=== PATIENT | female | born 1965 | race Caucasian/White ===

== ENCOUNTER → 2018-12-29 | Outpatient (CLI) | payer MEDICAID ==
[2018-12-29 20:53] LABS: Microalbumin Creatinine Ratio <30 mg/g Creat (0-30)
[2018-12-30 00:53] LABS: Hemoglobin A1C 5.9 % (4.0-6.0)
== END | disposition home or self-care (01) ==
LOC: LABWHC1 12:13
PROVIDERS: ATTEND Internal Medicine
DX: E11.9 Type 2 diabetes mellitus without complications (principal)
CPT/HCPCS: 36415; 82043; 82570; 83036

== ENCOUNTER → 2019-07-28 | Outpatient (CLI) | payer MEDICAID ==
[2019-07-28 20:04] LABS: Luteinizing Hormone 25.7 mIU/mL
[2019-07-28 20:05] LABS: Follicle Stimulating Hormone 44.8 mIU/mL
== END | disposition home or self-care (01) ==
LOC: LABWHC1 12:47
PROVIDERS: ATTEND Internal Medicine
DX: Z78.0 Asymptomatic menopausal state (principal)
CPT/HCPCS: 36415; 82672; 83001; 83002

== ENCOUNTER → 2019-11-10 | Outpatient (CLI) | payer MEDICAID ==
[2019-11-10 10:25] LABS: Basophils % (A) 1 %; Eosinophils # (A) 0.2 k/uL (0-0.7); Eosinophils % (A) 3 %; HCT 40.3 % (34.0-46.0); HGB 12.8 gm/dL (11.4-16.0); Lymphocytes # (A) 1.8 k/uL (1.0-4.8); Lymphocytes % (A) 28 %; MCH 29.4 pg (25.0-35.0); MCHC 31.7 g/dL (31.0-37.0); MCV 92.8 fL (80.0-100.0); Mean Platelet Volume 7.8; Monocytes # (A) 0.3 k/uL (0-1.0); Monocytes % (A) 4 %; Neutrophils % (A) 63 %; Platelet Count 278 k/uL (150-450); RBC 4.34 m/uL (3.80-5.40); RDW 12.7 % (11.5-15.5); WBC 6.4 k/uL (3.8-10.6)
[2019-11-10 11:21] LABS: Appearance,Urine Cloudy (Clear); Bacteria,Urine Occasional /hpf; Bilirubin,Urine Negative (Negative); Blood,Urine Negative (Negative); Color,Urine Yellow; Glucose,Urine (UA) Negative (Negative); Ketones,Urine Negative (Negative); Leukocyte Esterase,Urine Large (Negative); Mucus,Urine Rare /hpf; Nitrite,Urine Negative (Negative); Protein,Urine Negative (Negative); RBC,Urine <1 /hpf (0-5); Specific Gravity,Urine 1.015 (1.001-1.035); Squamous Epithelial Cell,Urine 5 /hpf (0-4); Urobilinogen,Urine <2.0 mg/dL (<2.0); WBC,Urine 31 /hpf (0-5)
[2019-11-10 16:15] LABS: Urine Creatinine 69.1 mg/dL
[2019-11-10 16:47] LABS: African American GFR (CKD) 82.8 (60.0-200.0); Albumin 4.2 g/dL (3.80-4.90); Albumin/Globulin Ratio 1.91 (1.60-3.17); Anion Gap 8.5 mmol/L (4.00-12.00); BUN/Creat Ratio 17.78 Ratio (12.00-20.00); Calcium 9.3 mg/dL (8.7-10.3); Carbon Dioxide 29.5 mmol/L (21.6-31.8); Chol/HDL Ratio 1.95; Globulin 2.2 g/dL (1.6-3.3); Non-African American GFR(CKD) 71.5 (60.0-200.0); Potassium 4.7 mmol/L (3.5-5.5); Total Bilirubin 0.3 mg/dL (0.2-1.2); Total Protein 6.4 g/dL (6.2-8.2)
[2019-11-10 17:45] LABS: Hemoglobin A1C 6.2 % (4.0-6.0)
== END | disposition home or self-care (01) ==
LOC: LABWHC1 09:31
PROVIDERS: ATTEND Internal Medicine
DX: Z00.00 Encounter for general adult medical examination without abnormal findings (principal); E11.9 Type 2 diabetes mellitus without complications; R11.0 Nausea
CPT/HCPCS: 36415; 80053; 80061; 81001; 82043; 82306; 82570; 83036; 84443; 85025

== ENCOUNTER → 2020-07-11 | Outpatient (CLI) | payer MEDICAID ==
[2020-07-11 19:56] LABS: Basophils # (A) 0.06 X 10*3/uL (0.00-0.10); Basophils % (A) 0.9 %; Eosinophils # (A) 0.29 X 10*3/uL (0.04-0.35); Eosinophils % (A) 4.3 %; HCT 38.1 % (37.2-46.3); HGB 12.1 g/dL (12.0-15.0); Lymphocytes # (A) 2.27 X 10*3/uL (0.90-5.00); Lymphocytes % (A) 33.5 %; MCH 30.5 pg (27.0-32.0); MCHC 31.8 g/dL (32.0-37.0); Mean Platelet Volume 11.8 fL (9.5-12.2); Monocytes # (A) 0.44 X 10*3/uL (0.20-1.00); Monocytes % (A) 6.5 %; Neutrophils # (A) 3.69 X 10*3/uL (1.80-7.70); Neutrophils % (A) 54.5 %; Platelet Count 273 X 10*3/uL (140-440); RBC 3.97 X 10*6/uL (4.10-5.20); RDW 12.4 % (11.5-14.5); WBC 6.77 X 10*3/uL (4.50-10.00)
[2020-07-11 22:17] LABS: Hemoglobin A1C 6.1 % (4.0-6.0)
[2020-07-12 16:15] LABS: African American GFR (CKD) 95.5 (60.0-200.0); Albumin 4.2 g/dL (3.80-4.90); Albumin/Globulin Ratio 1.83 (1.60-3.17); Anion Gap 13.9 mmol/L (4.00-12.00); BUN/Creat Ratio 12.5 Ratio (12.00-20.00); Calcium 9.6 mg/dL (8.7-10.3); Carbon Dioxide 24.1 mmol/L (21.6-31.8); Chol/HDL Ratio 2.16; Globulin 2.3 g/dL (1.6-3.3); LDL Cholesterol,Calculated 71.2 mg/dL (0.0-131.0); Non-African American GFR(CKD) 82.4 (60.0-200.0); Potassium 4.7 mmol/L (3.5-5.5); Total Bilirubin 0.3 mg/dL (0.3-1.2); Total Protein 6.5 g/dL (6.2-8.2); VLDL Calculation 13.8 mg/dL (5.00-40.00)
[2020-07-12 20:02] LABS: Microalbumin Creatinine Ratio <30 mg/g Creat (0-30); Urine Creatinine 31.8 mg/dL
== END | disposition home or self-care (01) ==
LOC: LABWHC1 12:07
PROVIDERS: ATTEND Internal Medicine
DX: Z13.29 Encounter for screening for other suspected endocrine disorder (principal); E78.5 Hyperlipidemia, unspecified; E11.9 Type 2 diabetes mellitus without complications; E55.9 Vitamin D deficiency, unspecified; I10 Essential (primary) hypertension
CPT/HCPCS: 36415; 80053; 80061; 82043; 82306; 82570; 83036; 84443; 85025

== ENCOUNTER → 2020-12-06 | Outpatient (CLI) | payer MEDICAID ==
--- NOTE | 2020-12-06 15:28 | US ---
EXAMINATION TYPE: US pelvic complete DATE OF EXAM: 12/06/2020 COMPARISON: NONE CLINICAL HISTORY: N95.0 Postmenopausal bleeding. Patient takes Esterol. TECHNIQUE: Transabdominal (TA). Date of LMP: 3 years prior EXAM MEASUREMENTS: Uterus: 8.2 x 3.5 x 3.7 cm Endometrial Stripe: 0.6 cm Right Ovary: 2.6 x 1.1 x 0.8 cm Left Ovary: 1.5 x 0.8 x 0.9 cm 1. Uterus: Anteverted wnl 2. Endometrium: wnl 3. Right Ovary: wnl 4. Left Ovary: wnl 5. Bilateral Adnexa: wnl 6. Posterior cul-de-sac: wnl IMPRESSION: No discrete abnormality seen.
== END | disposition home or self-care (01) ==
LOC: RADUSWWP 14:50
PROVIDERS: ATTEND Obstetrics & Gynecology
DX: N95.0 Postmenopausal bleeding (principal)
CPT/HCPCS: 76856

== ENCOUNTER → 2021-05-11 | Outpatient (CLI) | payer MEDICAID ==
[2021-05-11 16:35] LABS: Basophils # (A) 0.04 X 10*3/uL (0.00-0.10); Basophils % (A) 0.7 %; Eosinophils # (A) 0.19 X 10*3/uL (0.04-0.35); Eosinophils % (A) 3.4 %; HCT 38.1 % (37.2-46.3); HGB 12.1 g/dL (12.0-15.0); Immature Grans, Automated 0.2 %; Lymphocytes # (A) 1.46 X 10*3/uL (0.90-5.00); MCHC 31.8 g/dL (32.0-37.0); MCV 94.3 fL (80.0-97.0); Mean Platelet Volume 11.1 fL (9.5-12.2); Monocytes # (A) 0.42 X 10*3/uL (0.20-1.00); Monocytes % (A) 7.5 %; NRBC Per 100 WBC 0 /100 WBCS (0.0-0.0); Neutrophils % (A) 62.2 %; Platelet Count 264 X 10*3/uL (140-440); RBC 4.04 X 10*6/uL (4.10-5.20); RDW 12.8 % (11.5-14.5); WBC 5.62 X 10*3/uL (4.50-10.00)
[2021-05-11 17:19] LABS: ALT 21 U/L (8-44); AST 12 U/L (13-35); African American GFR (CKD) 94.9 (60.0-200.0); Albumin 4.1 g/dL (3.8-4.9); Albumin/Globulin Ratio 1.58 (1.60-3.17); Alkaline Phosphatase 78 U/L (41-126); Blood Urea Nitrogen 10.8 mg/dL (9.0-27.0); Carbon Dioxide 23.3 mmol/L (20.0-27.5); Chloride 102 mmol/L (96-109); Globulin 2.6 g/dL (1.6-3.3); Glucose 103 mg/dL (70-110); Non-African American GFR(CKD) 81.8 (60.0-200.0); Potassium 4.7 mmol/L (3.5-5.5); Sodium 136 mmol/L (135-145); Total Bilirubin <0.15 mg/dL (0.30-1.20); Total Protein 6.7 g/dL (6.2-8.2)
[2021-05-11 17:31] LABS: Chol/HDL Ratio 1.86 Ratio
[2021-05-11 21:59] LABS: Urine Creatinine 35.8 mg/dL (28.0-217.0)
== END | disposition home or self-care (01) ==
LOC: LABWHC1 10:46
PROVIDERS: ATTEND Internal Medicine
DX: Z00.00 Encounter for general adult medical examination without abnormal findings (principal); E11.9 Type 2 diabetes mellitus without complications; E55.9 Vitamin D deficiency, unspecified
CPT/HCPCS: 36415; 80053; 80061; 82043; 82306; 82570; 83721; 84443; 85025

== ENCOUNTER → 2021-12-23 | Outpatient (CLI) | payer MEDICAID ==
[2021-12-23 18:05] LABS: Basophils # (A) 0.04 X 10*3/uL (0.00-0.10); Basophils % (A) 0.6 %; Eosinophils # (A) 0.16 X 10*3/uL (0.04-0.35); Eosinophils % (A) 2.3 %; HCT 39.2 % (37.2-46.3); HGB 12.4 g/dL (12.0-15.0); Immature Grans, Automated 0.3 %; Lymphocytes # (A) 1.94 X 10*3/uL (0.90-5.00); Lymphocytes % (A) 27.8 %; MCH 29.9 pg (27.0-32.0); MCHC 31.6 g/dL (32.0-37.0); MCV 94.5 fL (80.0-97.0); Mean Platelet Volume 11.8 fL (9.5-12.2); Monocytes # (A) 0.45 X 10*3/uL (0.20-1.00); Monocytes % (A) 6.4 %; NRBC Per 100 WBC 0 /100 WBCS (0.0-0.0); Neutrophils # (A) 4.38 X 10*3/uL (1.80-7.70); Neutrophils % (A) 62.6 %; Platelet Count 242 X 10*3/uL (140-440); RBC 4.15 X 10*6/uL (4.10-5.20); RDW 13.2 % (11.5-14.5); WBC 6.99 X 10*3/uL (4.50-10.00)
[2021-12-23 18:14] LABS: African American GFR (CKD) 83.4 (60.0-200.0); BUN/Creat Ratio 11.3 Ratio (12.00-20.00); Calcium 9.4 mg/dL (8.7-10.3); Carbon Dioxide 29.2 mmol/L (20.0-27.5); Non-African American GFR(CKD) 71.9 (60.0-200.0); Potassium 4.5 mmol/L (3.5-5.5)
== END | disposition home or self-care (01) ==
LOC: LABPAT 12:36
PROVIDERS: ATTEND Orthopaedic Surgery
DX: Z01.812 Encounter for preprocedural laboratory examination (principal); M23.92 Unspecified internal derangement of left knee
CPT/HCPCS: 36415; 80048; 85025; 93005

== ENCOUNTER → 2021-12-27 | Day surgery (SDC) | payer MEDICAID ==
[2021-12-25 12:04] VITALS: BMI 45.3
--- NOTE | 2021-12-26 10:24 | P.HPOR ---
History of Present Illness H&P Date: 12/26/21 Chief Complaint: Left knee pain The patient is a 56-year-old female who presents with left knee pain for the past 6 months. She recently had a twisting injury as well. She notes buckling, locking, and swelling. She is having difficult time with weightbearing activities, particularly stairs. She tried medications in addition to injections without much relief. She's also been wearing a brace. Review of Systems As per HPI Past Medical History Past Medical History: Asthma, Diabetes Mellitus, Fibromyalgia, GERD/Reflux, Hyperlipidemia, Hypertension, Osteoarthritis (OA) Additional Past Medical History / Comment(s): COVD 09/01/21, migraines, seasonal asthma-states currently having sinus symptoms due to allergies, hx IBS, diet control diabetic, urinary leakage History of Any Multi-Drug Resistant Organisms: None Reported Past Surgical History: Section Past Anesthesia/Blood Transfusion Reactions: Motion Sickness Smoking Status: Never smoker - Past Family History Father Family Medical History: Cancer Additional Family Medical History / Comment(s): skin Mother Family Medical History: Cancer Additional Family Medical History / Comment(s): pancreatic Medications and Allergies Home Medications Medication Instructions Recorded Confirmed Type ALPRAZolam [Xanax] 0.25 mg PO BID PRN 12/25/21 12/25/21 History Acetaminophen-Codeine 300-30mg 1 tab PO Q6HR PRN 12/25/21 12/25/21 History [Tylenol w/codeine #3] Amitriptyline HCl [Elavil] 25 mg PO HS 12/25/21 12/25/21 History Ashwagandha Root Extract 600 mg PO HS 12/25/21 12/25/21 History Aspirin/Acetaminophen/Caffeine 1 each PO DIRECTED PRN 12/25/21 12/25/21 History [Excedrin Extra Strength Caplet] Atorvastatin Calcium 10 mg PO HS 12/25/21 12/25/21 History Enalapril Maleate 5 mg PO HS 12/25/21 12/25/21 History Fexofenadine/Pseudoephedrine 1 tab PO HS 12/25/21 12/25/21 History [Crystal-D 24 Hour Tablet] Fluticasone Nasal [place] [Flonase 1 spray EA NOSTRIL DAILY 12/25/21 12/25/21 History Nasal [place]] Ibuprofen [Motrin] 600 mg PO Q8HR PRN 12/25/21 12/25/21 History Magnesium Oxide [Magnesium] 500 mg PO DAILY 12/25/21 12/25/21 History Metoprolol Succinate (ER) [Toprol 25 mg PO HS 12/25/21 12/25/21 History Xl] Montelukast Sodium [Singulair] 10 mg PO HS 12/25/21 12/25/21 History Sudafed(Dose Unknown) 1 applicate PO DIRECTED PRN 12/25/21 12/25/21 History Venlafaxine HCl ER [Effexor Xr] 75 mg PO HS 12/25/21 12/25/21 History methocarbamoL [Methocarbamol] 500 mg PO Q8HR PRN 12/25/21 12/25/21 History Allergies Allergy/AdvReac Type Severity Reaction Status Date / Time cephalexin [From Keflex] AdvReac Nausea & Verified 12/25/21 11:46 Vomiting & Diarrhea fexofenadine [From Crystal-D] AdvReac headaches Verified 12/25/21 11:46 pseudoephedrine AdvReac headaches Verified 12/25/21 11:46 [From Crystal-D] powder in latex gloves Allergy red skin Uncoded 12/25/21 12:17 Physical Examination - Knee right Appearance: effusion Effusion grade: grade 1 Varus alignment in stance: 5 degrees Tenderness with palpation: medial Pain: with flexion Gait: limping ROM: extension: -5 degrees ROM: flexion: 110 degrees Crepitus with motion: Yes Strength: extension: 5/5 Strength: flexion: 5/5 Meniscal tests: medial meniscal tests: positive Results The patient is a well-developed well-nourished female of endomorphic habitus. HEENT exam is nonfocal, neck supple. She has painless passive motion of her left hip. Straight leg raise is negative. Her distal neurovascular appears intact in left lower extremity. - Diagnostic results Knee MRI: image reviewed (Left knee MRI shows evidence of a medial meniscal tear along with medial compartment degenerative changes.) Assessment and Plan Assessment: Left knee internal derangement symptomatic medial meniscal tear left knee medial compartment osteoarthrosis Plan: I talked with the patient at length regarding her condition along with treatment options. At this point she remains quite syndromatic despite conservative measures. After thorough discussion she proceed with surgery. We'll plan to proceed with arthroscopic evaluation with probable partial medial meniscectomy. Risks and benefits were discussed at length in layman's terms. We will likely perform as an outpatient procedure. Time with Patient: Less than 30
[~2021-12-27] MED LIST: DEXAMETHASONE SOD PHOSPHATE 4 MG/ML 1 ML VIAL IV ONE; HYDROcodone/APAP 5-325MG 1 EACH TAB ONE; HYDROcodone/APAP 5-325MG 1 EACH TAB PO ONE; HYDROmorphone (PF) 1 MG/ML ONE; HYDROmorphone 0.5 MG/0.5 ML SYRINGE IVP PRN; KETOROLAC 15 MG/ML 1 ML VIAL ONE; LACTATED RINGERS 1,000 ML IV ONE; LACTATED RINGERS 1,000 ML IV SCH; LIDOCAINE 1% (10MG/ML) FOR IV START INTRADERMA ONE; LIDOCAINE 2% INJ 20 MG/ML (2 ML VIAL) ONE; MIDAZOLAM 2 MG/2 ML VIAL IV PRN; MIDAZOLAM 2 MG/2 ML VIAL ONE; ONDANSETRON 4 MG/2 ML VIAL IVP ONE; PROPOFOL 10 MG/ML 20 ML VIAL IV ONE; SCOPOLAMINE 1 MG/72 HR PATCH TRANSDERM ONE; SODIUM CHLORIDE 0.9% 50 ML with ceFAZolin 2,000 MG IV ONE; fentaNYL (PF) 50 MCG/ML 2 ML AMP ONE
[2021-12-27 08:44] VITALS: TEMP 97.6
[2021-12-27 08:58] LABS: Glucose,Whole Blood 104 mg/dL (70-110)
--- NOTE | 2021-12-27 10:52 | P.OP ---
Date of Procedure: 12/27/21 Preoperative Diagnosis: Left knee internal derangement Postoperative Diagnosis: Left knee posterior medial meniscal tear Procedure(s) Performed: Left knee arthroscopic partial medial meniscectomy Anesthesia: DARRENA Surgeon: Bradley Viera Estimated Blood Loss (ml): 10 Pathology: none sent Condition: stable Disposition: PACU Indications for Procedure: The patient's a 56-year-old female who presents with progressive left knee pain despite conservative measures. A discussion of the risks and benefits of operative intervention was made with patient. She opted proceed with surgery. Operative risks to include infection, neurovascular injury, development of blood clots, possible incomplete resolution of symptoms, possible worsening symptoms and need for subsequent procedures was discussed. Informed consent was obtained. Operative Findings: As below Description of Procedure: The patient was brought to the operating room, and after induction of general anesthesia examined the left knee. Collaterals were stable, Pancho was negative, and posterior drawer was negative. The left lower extremity was prepped and draped in a normal fashion. A superior lateral portal was made through a 3 mm skin incision superior and lateral to the patella. This was used for outflow. A lateral portal was made through a 5 mm vertical skin incision lateral to the patella tendon above the joint line. Diagnostic arthroscopy was performed. On inspection of the medial compartment, and oblique tear involving the posterior horn of the medial meniscus in the white-red junction was noted. This was debrided back to stable base with straight baskets and a motorized shaver. The remaining medial meniscus was stable and intact. On inspection of the notch, the anterior cruciate ligament appeared to be intact. On inspection of the lateral compartment, no significant meniscal or cartilage pathology was noted. On inspection of the patellofemoral articulation, there was chondral fibrillation however no loose chondral fragments. The gutters were clear debris. The knee was then thoroughly irrigated. The portals were closed with Steri-Strips. A sterile dressing was applied in addition to a compression stocking. The patient was awoken from general anesthesia and transferred to recovery room in good condition. Blood loss was estimated at 10 mL. No complications were incurred.
[2021-12-27 11:23] LABS: Glucose,Whole Blood 99 mg/dL (70-110)
[2021-12-27 11:36] VITALS: RESP 16
[2021-12-27 12:50] VITALS: BP 126/85; PULSE 71
== END | disposition home or self-care (01) ==
LOC: OR 07:51
PROVIDERS: ATTEND Orthopaedic Surgery
DX: M23.304 Other meniscus derangements, unspecified medial meniscus, left knee (principal); J45.909 Unspecified asthma, uncomplicated; E11.9 Type 2 diabetes mellitus without complications; I10 Essential (primary) hypertension; E78.5 Hyperlipidemia, unspecified; M19.90 Unspecified osteoarthritis, unspecified site; Z80.0 Family history of malignant neoplasm of digestive organs; Z79.82 Long term (current) use of aspirin; Z79.899 Other long term (current) drug therapy
CPT/HCPCS: 29881; J2250; J1100; J2405; J0690; J3010; J1170 ×2; J1885; J2704; J2001

== ENCOUNTER → 2022-09-06 | Outpatient (CLI) | payer MEDICAID | END | disposition home or self-care (01) | LOC: LABWHC1 11:40 | PROVIDERS: ATTEND Internal Medicine | DX: M79.674 Pain in right toe(s) (principal) | CPT/HCPCS: 36415; 84550 ==

== ENCOUNTER → 2022-09-06 | Outpatient (CLI) | payer MEDICAID ==
--- NOTE | 2022-09-06 12:35 | XR ---
EXAMINATION TYPE: XR toes RT DATE OF EXAM: 09/06/2022 12:07 PM INDICATION: Patient age:Female; 57 years old; Reason for study: M79.674 pain R toes; PHH. COMPARISON: None TECHNIQUE: The restriction of the right foot was examined in the AP, oblique, and lateral projections . FINDINGS: No evidence of any acute osseous pathology. No evidence of soft tissue swelling. No dislocation. Mil d degenerative changes of the first MTP joint with joint space narrowing and marginal spurring. No os seous erosions. No radiopaque foreign body. IMPRESSION: 1. No evidence of acute fracture. 2. Mild osteoarthritic changes of the first MTP joint.
== END | disposition home or self-care (01) ==
LOC: RADXRMAIN 11:50
PROVIDERS: ATTEND Internal Medicine
DX: M19.071 Primary osteoarthritis, right ankle and foot (principal)

== ENCOUNTER → 2022-12-20 | Outpatient (CLI) | payer MEDICAID ==
[2022-12-20 23:40] LABS: ALT 24 U/L (8-44); AST 12 U/L (13-35); Albumin 4.3 g/dL (3.8-4.9); Albumin/Globulin Ratio 1.95 Ratio (1.60-3.17); Alkaline Phosphatase 80 U/L (41-126); BUN/Creat Ratio 14.75 Ratio (12.00-20.00); Blood Urea Nitrogen 11.8 mg/dL (9.0-27.0); Calcium 9.4 mg/dL (8.7-10.3); Carbon Dioxide 26.3 mmol/L (21.6-31.8); Chloride 104 mmol/L (96-109); Chol/HDL Ratio 1.99 Ratio; Globulin 2.2 g/dL (1.6-3.3); Glucose 114 mg/dL (70-110); LDL Cholesterol,Calculated 61.8 mg/dL (0.0-131.0); Potassium 4.7 mmol/L (3.5-5.5); Sodium 141 mmol/L (135-145); Total Bilirubin 0.2 mg/dL (0.3-1.2); Total Protein 6.5 g/dL (6.2-8.2); VLDL Calculation 9.26 mg/dL (5.00-40.00)
[2022-12-21 00:08] LABS: Rheumatoid Factor, Qnt <15 IU/mL (0-15)
== END | disposition home or self-care (01) ==
LOC: LABWHC1 11:04
PROVIDERS: ATTEND Internal Medicine
DX: Z13.0 Encounter for screening for diseases of the blood and blood-forming organs and certain disorders involving the immune mechanism (principal); Z13.29 Encounter for screening for other suspected endocrine disorder; E78.5 Hyperlipidemia, unspecified; E55.9 Vitamin D deficiency, unspecified; M25.50 Pain in unspecified joint; R73.9 Hyperglycemia, unspecified
CPT/HCPCS: 36415; 80053; 80061; 82306; 84443; 86038; 86200; 86431

== ENCOUNTER → 2023-11-14 | Outpatient (CLI) | payer MEDICAID ==
[2023-11-14 23:14] LABS: Basophils # (A) 0.05 X 10*3/uL (0.00-0.10); Eosinophils # (A) 0.14 X 10*3/uL (0.04-0.35); Eosinophils % (A) 2.9 %; HCT 40.2 % (37.2-46.3); HGB 12.9 g/dL (12.0-15.0); Lymphocytes # (A) 1.42 X 10*3/uL (0.90-5.00); Lymphocytes % (A) 28.9 %; MCHC 32.1 g/dL (32.0-37.0); MCV 93.5 FL (80.0-97.0); Mean Platelet Volume 11.3 FL (9.5-12.2); Monocytes # (A) 0.34 X 10*3/uL (0.20-1.00); Monocytes % (A) 6.9 %; NRBC Per 100 WBC 0 X 10*3/uL (0.00-0.01); Neutrophils # (A) 2.95 X 10*3/uL (1.80-7.70); Neutrophils % (A) 60.1 %; Platelet Count 247 X 10*3/uL (140-440); RDW 12.9 % (11.5-14.5); WBC 4.91 X 10*3/uL (4.50-10.00)
[2023-11-14 23:46] LABS: ALT 21 U/L (8-44); AST 11 U/L (13-35); Albumin 4.3 g/dL (3.8-4.9); Albumin/Globulin Ratio 1.79 Ratio (1.60-3.17); Alkaline Phosphatase 80 U/L (41-126); BUN/Creat Ratio 21.71 Ratio (12.00-20.00); Blood Urea Nitrogen 15.2 mg/dL (9.0-27.0); Calcium 9.4 mg/dL (8.7-10.3); Chloride 105 mmol/L (96-109); Chol/HDL Ratio 2.35 Ratio; Globulin 2.4 g/dL (1.6-3.3); Glucose 109 mg/dL (70-110); LDL Cholesterol,Calculated 80.5 mg/dL (0.0-131.0); Potassium 4.7 mmol/L (3.5-5.5); Sodium 143 mmol/L (135-145); Total Bilirubin 0.4 mg/dL (0.3-1.2); Total Protein 6.7 g/dL (6.2-8.2); VLDL Calculation 10.34 mg/dL (5.00-40.00)
== END | disposition home or self-care (01) ==
LOC: LABWHC1 10:42
PROVIDERS: ATTEND Internal Medicine
DX: Z00.00 Encounter for general adult medical examination without abnormal findings (principal); Z11.59 Encounter for screening for other viral diseases; E55.9 Vitamin D deficiency, unspecified
CPT/HCPCS: 36415; 80053; 80061; 82306; 84443; 85025; 86803

== ENCOUNTER → 2024-01-15 | Outpatient (CLI) | payer OTHER ==
--- NOTE | 2024-01-15 13:15 | XR ---
EXAMINATION TYPE: XR wrist complete RT DATE OF EXAM: 01/15/2024 12:40 PM COMPARISON: None CLINICAL INDICATION: Female, 58 years old with history of [id number] SPRN RW;, pain TECHNIQUE: XR wrist complete RT; examined in the Frontal, navicular, lateral, and oblique. FINDINGS: No acute osseous pathology, joint dislocation, or joint effusion. No evidence of any soft tissue swelling is seen. Ulnar styloid process remote injury versus anatomic variant ossicle. IMPRESSION: No acute osseous pathology. [facility], , 01/15/2024 1:13 PM
--- NOTE | 2024-01-15 13:49 | XR ---
EXAMINATION TYPE: XR hand complete RT DATE OF EXAM: 01/15/2024 12:40 PM COMPARISON: Same day radiograph, 09/02/2022 CLINICAL INDICATION: Female, 58 years old with history of [id number] CONT RH; PHH, pain TECHNIQUE: XR hand complete RT 3views were obtained. FINDINGS: No acute osseous pathology, joint dislocation, or joint effusion. No evidence of any soft tissue swelling is seen. Ulnar styloid process remote injury versus anatomic variant ossicle. IMPRESSION: No acute osseous pathology. [facility], , 01/15/2024 1:47 PM
== END | disposition home or self-care (01) ==
LOC: RADXRMAIN 12:24
PROVIDERS: ATTEND Emergency Medicine
DX: S63.501A Unspecified sprain of right wrist, initial encounter (principal); S60.221A Contusion of right hand, initial encounter

== ENCOUNTER → 2024-01-21 | Outpatient (CLI) | payer OTHER ==
--- NOTE | 2024-01-21 16:46 | XR ---
EXAMINATION TYPE: XR knee complete RT DATE OF EXAM: 01/21/2024 4:32 PM COMPARISON: None CLINICAL INDICATION: Female, 58 years old with history of S80.01XD RH KNEE TRIP AND FALL; PHH, pain TECHNIQUE: XR knee complete RT 3 views submitted. FINDINGS: No evidence of any acute osseous pathology, soft tissue swelling, or joint effusion is no kumar. Tricompartmental osteophyte formation involving the femoral condyles, tibial plateau and patella . Mild joint space narrowing. IMPRESSION: 1. No acute osseous pathology. 2. Mild to moderate tricompartmental osteoarthritic changes. [facility], , 01/21/2024 4:44 PM
== END | disposition home or self-care (01) ==
LOC: RADXRMAIN 16:10
PROVIDERS: ATTEND Emergency Medicine
DX: S80.01XD Contusion of right knee, subsequent encounter (principal); M17.11 Unilateral primary osteoarthritis, right knee

== ENCOUNTER → 2024-01-21 | Outpatient (CLI) | payer OTHER ==
--- NOTE | 2024-01-21 13:31 | XR ---
EXAMINATION TYPE: XR wrist complete RT, XR hand complete RT DATE OF EXAM: 01/21/2024 1:01 PM COMPARISON: None CLINICAL INDICATION: Female, 58 years old with history of S63.501D, S60.221D, pain TECHNIQUE: XR wrist complete RT, XR hand complete RT; examined in the Frontal, navicular, lateral, a nd oblique. Frontal lateral oblique views of the wrist. FINDINGS: No acute osseous pathology, joint dislocation, or joint effusion. No evidence of any soft tissue swelling is seen. Ulnar styloid process remote injury suggested. IMPRESSION: No acute osseous pathology. [facility], , 01/21/2024 1:29 PM
== END | disposition home or self-care (01) ==
LOC: RADXRMAIN 12:24
PROVIDERS: ATTEND Emergency Medicine
DX: S63.501D Unspecified sprain of right wrist, subsequent encounter (principal); S60.221D Contusion of right hand, subsequent encounter

== ENCOUNTER → 2024-01-26 | Outpatient (CLI) | payer OTHER ==
--- NOTE | 2024-02-01 12:47 | MR ---
EXAMINATION TYPE: MR wrist RT wo con DATE OF EXAM: 01/26/2024 7:48 PM COMPARISON: Radiograph 01/21/2024 CLINICAL INDICATION: Female, 58 years old with history of S63.501D UNSPECIFIED SPRAIN OF RIGHT WRIST, SUBSEQ, Right wrist pain, and swelling since Jan.13 due to work injury/fall TECHNIQUE: Multiplanar, multisequence images of the right wrist were obtained without IV contrast. FINDINGS: [id number] degenerative change at the first CMC joint. More severe degenerative change at the t riscaphe joint. Patchy edema within the mid to distal aspect of the scaphoid probably reactive to degenerative change . Bone bruises also possible. May be some degenerative cartilage thinning along the radioscaphoid joint. Otherwise, the radiocarpal joint is intact. The scapholunate ligament and lunotriquetral ligaments appear grossly intact. Small wrist joint effusion. There is a 6 mm corticated bone fragment at the ulnar styloid process suggestive of a chronic ununite d fracture fragment. The styloid attachment of the TFC articular disc is seen inserting onto the bone fragment. No clear contiguously with some tissue at the ulnar attachment to the main portion of the articular disc. The dorsal radioulnar ligament also appears thin. Mild edema and adjacent soft tissue swelling and corresponding mild thickening of the ACL tendon cedeno th at this level. No abnormal edema seen within the ossicle itself. Trace fluid or synovitis within the distal radioulnar joint. Otherwise, the dorsal extensor and volar flexor tendons appear satisfactory. Normal caliber of the me karin nerve with a cross-sectional area of 10 sq mm at the level of the wrist. Otherwise, no acute or healing fracture is seen. IMPRESSION: 1. 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 The presence of some surrounding soft tissue edema could reflect irritation related to ongoing motion at the fracture site or contusio n. The styloid attachment of the TFC inserts onto the bone fragment. There may be a chronic tear of t he foveal limb. 2. [id number] OA at the first CMC joint and moderate to severe at the triscaphe joint. Patchy o sseous edema within the scaphoid bone could be reactive to the arthritis or could represent a bone br uise. 3. Additional mild to moderate osteoarthritic change at the radioscaphoid joint. 4. Mild ECU tenosynovitis. [facility], , 02/01/2024 12:45 PM
== END | disposition home or self-care (01) ==
LOC: RADMRIMAIN 18:49
PROVIDERS: ATTEND Emergency Medicine
DX: S63.501D Unspecified sprain of right wrist, subsequent encounter (principal); M18.11 Unilateral primary osteoarthritis of first carpometacarpal joint, right hand; M65.931 Unspecified synovitis and tenosynovitis, right forearm; R60.0 Localized edema

== ENCOUNTER 2024-08-21 13:38 | Emergency (ER) | payer OTHER ==
[2024-08-21 13:53] VITALS: BP 162/82; PULSE 80; RESP 18; TEMP 98
--- NOTE | 2024-08-21 14:57 | ED ---
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 Patient states that started several days ago in her right wrist. She states that she noticed she had pain in her right upper forearm and right shoulder yesterday as well. She has some mild swelling. Denies erythema and denies any significant warmth. Denies any falls or injuries. Denies any chest pain, palpitations, shortness of breath, hemoptysis, recent travel, recent surgery or history of DVT or PE. She denies any IV drug use. Denies any fevers. Patient does lift patients but does not recall a specific injury - Related Data Home Medications Medication Instructions Recorded Confirmed ALPRAZolam [Xanax] 0.25 mg PO BID PRN 12/25/21 12/25/21 Acetaminophen-Codeine 300-30mg 1 tab PO Q6HR PRN 12/25/21 12/25/21 [Tylenol w/codeine #3] Amitriptyline HCl [Elavil] 25 mg PO HS 12/25/21 12/25/21 Ashwagandha Root Extract 600 mg PO HS 12/25/21 12/25/21 Aspirin/Acetaminophen/Caffeine 1 each PO DIRECTED PRN 12/25/21 12/25/21 [Excedrin Extra Strength Caplet] Atorvastatin Calcium 10 mg PO HS 12/25/21 12/25/21 Enalapril Maleate 5 mg PO HS 12/25/21 12/25/21 Fexofenadine/Pseudoephedrine 1 tab PO HS 12/25/21 12/25/21 [Crystal-D 24 Hour Tablet] Fluticasone Nasal [place] [Flonase 1 spray EA NOSTRIL DAILY 12/25/21 12/25/21 Nasal [place]] Ibuprofen [Motrin] 600 mg PO Q8HR PRN 12/25/21 12/25/21 Magnesium Oxide [Magnesium] 500 mg PO DAILY 12/25/21 12/25/21 Metoprolol Succinate (ER) [Toprol 25 mg PO HS 12/25/21 12/25/21 Xl] Montelukast Sodium [Singulair] 10 mg PO HS 12/25/21 12/25/21 Sudafed(Dose Unknown) 1 applicate PO DIRECTED PRN 12/25/21 12/25/21 Venlafaxine HCl ER [Effexor Xr] 75 mg PO HS 12/25/21 12/25/21 methocarbamoL [Methocarbamol] 500 mg PO Q8HR PRN 12/25/21 12/25/21 Previous Rx's Medication Instructions Recorded HYDROcodone/APAP 5-325MG [[place] 1 tab PO Q6HR PRN #18 tab 12/27/21 5-325] Allergies Allergy/AdvReac Type Severity Reaction Status Date / Time cephalexin [From Keflex] AdvReac Nausea & Verified 08/21/24 13:53 Vomiting & Diarrhea fexofenadine [From Crystal-D] AdvReac headaches Verified 08/21/24 13:53 pseudoephedrine AdvReac headaches Verified 08/21/24 13:53 [From Crystal-D] powder in latex gloves Allergy red skin Uncoded 08/21/24 13:53 Review of Systems ROS Statement: Those systems with pertinent positive or pertinent negative responses have been documented in the HPI. ROS Other: All systems not noted in ROS Statement are negative. Constitutional: Reports: as per HPI Respiratory: Denies: dyspnea Cardiovascular: Denies: chest pain Musculoskeletal: Reports: joint swelling, arthralgia, myalgia Neurological: Denies: numbness, paresthesias Past Medical History Past Medical History: Asthma, Diabetes Mellitus, Fibromyalgia, GERD/Reflux, Hyperlipidemia, Hypertension, Osteoarthritis (OA) Additional Past Medical History / Comment(s): COVD 09/01/21, migraines, seasonal asthma-states currently having sinus symptoms due to allergies, hx IBS, diet control diabetic, urinary leakage History of Any Multi-Drug Resistant Organisms: None Reported Past Surgical History: Section, Orthopedic Surgery Past Anesthesia/Blood Transfusion Reactions: Motion Sickness Past Psychological History: Anxiety, Depression Smoking Status: Never smoker Past Alcohol Use History: Occasional Past Drug Use History: None Reported - Past Family History Father Family Medical History: Cancer Additional Family Medical History / Comment(s): skin Mother Family Medical History: Cancer Additional Family Medical History / Comment(s): pancreatic General Exam Limitations: no limitations General appearance: alert Head exam: Present: atraumatic Neck exam: Present: full ROM Respiratory exam: Present: normal lung sounds bilaterally Cardiovascular Exam: Present: regular rate Extremities exam: Present: tenderness (Mild pain with palpation over the mid and proximal right forearm. Normal range of motion of the elbow joint no signs of septic joint or compartment syndrome. No ecchymosis. Patient states swelling however I do not appreciate any notable swelling on physical exam there is no pitting edema. ), joint swelling (pain over R shoulder joint. no significant erythmea swelling or warmth), other (Pain with palpation over the right distal wrist with mild swelling. There is no erythema or warmth. Compartments are soft. No signs of septic joint or compartment syndrome. Normal range of motion of the wrist joint. Good capillary refill normal range of motion and sensation of all 5 fingers. ) Back exam: Present: full ROM Neurological exam: Present: alert, oriented X3 Psychiatric exam: Present: normal affect Skin exam: Present: warm, dry. Absent: rash Course Vital Signs 08/21/24 13:50 Temperature 98 F Pulse Rate 80 Respiratory 18 Rate Blood Pressure 162/82 O2 Sat by Pulse 98 Oximetry - Reevaluation(s) Reevaluation #1: 08/21/24 1600 Patient is well-appearing in the emergency room. Moving all joints in the right upper extremity without significant limitation. There is no signs of a septic joint or compartment syndrome. No rash. No falls or injuries. I discussed results which were negative for DVT. She has osteoarthritis seen on the x-rays but no other acute changes. Discussed management including rest ice elevation. Discussed following up with PCP or emergency specialist for continued pain. She is to return if she develops any redness warmth or fevers to the joints. She understands and agrees to treatment discharge plan. Medical Decision Making - Medical Decision Making Was pt. sent in by a medical professional or institution (, PA, DIRECTOR FINANCIAL ANALYSIS, urgent care, hospital, or halfway...) When possible be specific @ -[No] Did you speak to anyone other than the patient for history (EMS, parent, family, police, friend...)? What history was obtained from this source @ -[No] Did you review nursing and triage notes (agree or disagree)? Why? @ -[I reviewed and agree with nursing and triage notes] Were old charts reviewed (outside hosp., previous admission, EMS record, old EKG, old radiological studies, urgent care reports/EKG's, halfway records)? Report findings @ -[No old charts were reviewed] Differential Diagnosis (chest pain, altered mental status, abdominal pain women, abdominal pain men, vaginal bleeding, weakness, fever, dyspnea, syncope, headache, dizziness, GI bleed, back pain, seizure, CVA, palpatations, mental health, musculoskeletal)? @ -Tendinitis of the right wrist, osteoarthritis of the right shoulder, right elbow, right wrist, inflammatory response EKG interpreted by me (3pts min.). @ -[As above] X-rays interpreted by me (1pt min.). @ -X-rays show osteoarthritis of the right shoulder. No deformities of any of the x-rays no fractures. CT interpreted by me (1pt min.). @ -[None done] U/S interpreted by me (1pt. min.). @ -Ultrasounds negative for any acute DVT What testing was considered but not performed or refused? (CT, X-rays, U/S, labs)? Why? @ -[None] What meds were considered but not given or refused? Why? @ -[None] Did you discuss the management of the patient with other professionals (professionals i.e. , PA, DIRECTOR FINANCIAL ANALYSIS, lab, RT, psych nurse, psych social worker, police patrol lieutenant, teacher, chief business development officer, child welfare caseworker)? Give summary @ -Discussed management with attending ED physician Dr. Ambrocio today. Was smoking cessation discussed for >3mins.? @ -No Was critical care preformed (if so, how long)? @ -[No] Were there social determinants of health that impacted care today? How? (Homelessness, low income, unemployed, alcoholism, drug addiction, transportation, low edu. Level, literacy, decrease access to med. care, residential, rehab)? 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 DNR status @ -[No] What co-morbidities impacted this encounter? (DM, HTN, Smoking, COPD, CAD, Cancer, CVA, ARF, Chemo, Hep., AIDS, mental health diagnosis, sleep apnea, morbid obesity)? @ -[None] Was patient admitted / discharged? Hospital course, mention meds given and route, prescriptions, significant lab abnormalities, going to OR and other pertinent info. @ -Patient is stable and able to follow-up as an outpatient. She is to follow- up with PCP for continued pain or swelling Undiagnosed new problem with uncertain prognosis? @ -[No] Drug Therapy requiring intensive monitoring for toxicity (Heparin, Nitro, Insulin, Cardizem)? @ -[No] Were any procedures done? @ -[No] Diagnosis/symptom? @ -Right upper extremity pain, tendinitis of the right wrist, right shoulder osteoarthritis Acute, or Chronic, or Acute on Chronic? @ -Acute Uncomplicated (without systemic symptoms) or Complicated (systemic symptoms)? @ -[default] Side effects of treatment? @ -[No] Exacerbation, Progression, or Severe Exacerbation? @ -[No] Poses a threat to life or bodily function? How? (Chest pain, [place], [place], pneumonia, PE, COPD, DKA, ARF, appy, cholecystitis, CVA, Diverticulitis, Homicidal, Suicidal, threat to staff... and all critical care pts) @ -[No] - Radiology Data Radiology results: report reviewed, image reviewed Disposition Clinical Impression: Arm pain, Tendonitis, Osteoarthritis of right shoulder Disposition: HOME SELF-CARE Condition: Fair Is patient prescribed a controlled substance at d/c from ED?: No When asked, does pt state using other controlled substances?: No If prescribed controlled substance>3 days was MAPS reviewed?: No If opioid is for acute pain is fill amount 7 days or less?: No If Rx opioid, was Start Talking consent form obtained?: No Referrals: Alondra Pham MD [Primary Care Provider] - 1-2 days Francisco Mayorga MD [Medical Doctor] - 1-2 days Time of Disposition: 16:34
--- NOTE | 2024-08-21 15:29 | XR ---
EXAMINATION TYPE: XR shoulder complete RT DATE OF EXAM: 08/21/2024 3:11 PM COMPARISON: None CLINICAL INDICATION: Female, 59 years old with history of pain, swelling; PHH, pain TECHNIQUE: XR shoulder complete RT; examined in AP, internally rotated and scapular Y projections. FINDINGS: No evidence of acute osseous pathology, joint dislocation, or soft tissue swelling. The remaining po rtions of the visualized chest are unremarkable. Degeneration changes of the acromion, distal clavic le with osteophyte formation. There is osteophyte formation of the glenoid and humeral head. There is joint space narrowing of glenohumeral joint. IMPRESSION: 1. No acute osseous pathology. 2. Mild shoulder osteoarthrosis. [facility], , 08/21/2024 3:27 PM
--- NOTE | 2024-08-21 15:31 | XR ---
EXAMINATION TYPE: XR forearm RT DATE OF EXAM: 08/21/2024 3:11 PM COMPARISON: 01/21/2024 CLINICAL INDICATION: Female, 59 years old with history of pain, swelling right wrist, r forearm; PHH, pain TECHNIQUE: XR forearm RT; forearm was examined in AP and lateral projections. FINDINGS: No acute osseous pathology, soft tissue swelling or joint dislocations are seen. Normal ul yvonne styloid process fracture. IMPRESSION: No evidence of acute fracture. [facility], , 08/21/2024 3:29 PM
--- NOTE | 2024-08-21 15:55 | US ---
EXAMINATION TYPE: US venous doppler duplex UE RT DATE OF EXAM: 08/21/2024 COMPARISON: NONE CLINICAL INDICATION: Female, 59 years old with history of swelling; Swelling. No hx of DVT. Patient d oes not take blood thinners. TECHNIQUE: Grayscale, color Doppler and spectral Doppler imaging of the upper extremity. SIDE PERFORMED: Right arm VESSELS IMAGED: IJV Subclavian Vein Axilla Vein Brachial Vein(s) Radial Paired Veins Ulnar Paired Veins Cephalic Vein* Basilic Vein* (*superficial vessels) FINDINGS: Right Arm: No evidence of DVT. Appropriate venous spectral waveforms and color Doppler imaging. IMPRESSION: No evidence for deep vein thrombosis of the right extremity. [facility], , 08/21/2024 3:53 PM
== END 2024-08-21 16:43 | disposition home or self-care (01) ==
LOC: EC 13:38
DX: M19.011 Primary osteoarthritis, right shoulder (principal); M77.9 Enthesopathy, unspecified; Z88.1 Allergy status to other antibiotic agents; Z88.8 Allergy status to other drugs, medicaments and biological substances; Z91.040 Latex allergy status
CPT/HCPCS: 99284

== ENCOUNTER → 2024-08-23 | Outpatient (CLI) | payer OTHER ==
[2024-08-23 19:26] LABS: Basophils # (A) 0.04 X 10*3/uL (0.00-0.10); Basophils % (A) 0.7 %; Eosinophils # (A) 0.13 X 10*3/uL (0.04-0.35); Eosinophils % (A) 2.3 %; HCT 39.4 % (37.2-46.3); HGB 12.7 g/dL (12.0-15.0); Immature Grans, Automated 0.20 %; Lymphocytes # (A) 1.54 X 10*3/uL (0.90-5.00); Lymphocytes % (A) 27.7 %; MCH 30.3 pg (27.0-32.0); MCHC 32.2 g/dL (32.0-37.0); MCV 94.0 FL (80.0-97.0); Monocytes # (A) 0.39 X 10*3/uL (0.20-1.00); Monocytes % (A) 7.0 %; NRBC Per 100 WBC 0 X 10*3/uL (0.00-0.01); Neutrophils # (A) 3.45 X 10*3/uL (1.80-7.70); Neutrophils % (A) 62.1 %; Platelet Count 268 X 10*3/uL (140-440); RBC 4.19 X 10*6/uL (4.10-5.20); RDW 12.9 % (11.5-14.5); WBC 5.56 X 10*3/uL (4.50-10.00)
[2024-08-23 20:13] LABS: ALT 25 U/L (8-44); AST 17 U/L (13-35); Albumin 4.1 g/dL (3.8-4.9); Albumin/Globulin Ratio 1.64 Ratio (1.60-3.17); Alkaline Phosphatase 84 U/L (41-126); Anion Gap 13.30 mmol/L (4.00-12.00); BUN/Creat Ratio 14.14 Ratio (12.00-20.00); Blood Urea Nitrogen 9.9 mg/dL (9.0-27.0); Calcium 9.1 mg/dL (8.7-10.3); Carbon Dioxide 26.7 mmol/L (21.6-31.8); Chloride 100 mmol/L (96-109); Creatine Kinase 103 U/L (26-186); Globulin 2.5 g/dL (1.6-3.3); Glucose 116 mg/dL (70-110); Potassium 4.3 mmol/L (3.5-5.5); Rheumatoid Factor, Qnt <15 IU/mL (0-15); Sodium 140 mmol/L (135-145); Total Protein 6.6 g/dL (6.2-8.2)
[2024-08-24 13:49] LABS: Cyclic Citrull Pep IgG Unit <1.5 U/mL (<=3.9)
== END | disposition home or self-care (01) ==
LOC: LABWHC1 15:47
PROVIDERS: ATTEND Internal Medicine
DX: G89.29 Other chronic pain (principal)
CPT/HCPCS: 36415; 80053; 82550; 85025; 85652; 86038; 86140; 86200; 86431